=== PATIENT | male | born 1940 | race Caucasian/White ===

== ENCOUNTER 2021-05-16 14:20 | Outpatient (CLI) | payer MEDICARE ==
[~2021-05-16 14:20] MED LIST: Iopamidol-370 76% 500 ML 1 ML ONE
[2021-05-16 14:53] LABS: Estimated GFR-MDRD - POC Greater than 90
== END 2021-05-16 14:21 | disposition home or self-care (01) ==
LOC: BICCT 14:20
PROVIDERS: ATTEND Thoracic Surgery (Cardiothoracic Vascular Surgery)
DX: I65.23 Occlusion and stenosis of bilateral carotid arteries (principal)
CPT/HCPCS: 70498; 82565; Q9967